=== PATIENT | male | born 1990 | race African-American/Black ===

== ENCOUNTER 2024-05-25 19:53 | Emergency (ER) | payer OTHER ==
[~2024-05-25] VITALS: Ht 185.4 cm; Wt 81.6 kg
[~2024-05-25 19:53] MED LIST: BUPRENORPHIN-N1 EACH SL; DEXTROAMP-AMPHE30 MG PO
[2024-05-25 21:29] LABS: EOSINOPHILS 0.6 % (0-6); HEMATOCRIT 39.4 % (35.0-50.0); HEMOGLOBIN 13.8 g/dL (12.0-18.0); LYMPHOCYTES 28.6 % (24-44); MCH 37.3 (27-36); MCHC 34.9 g/dl (30-36); MCV 106.8 fl (81-99); MONOCYTES 9.3 % (0-12); NEUTROPHILS 60.5 % (39-80); PLATELET COUNT 177 K/uL (140-440); RBC 3.69 M/ul (4.3-5.7); RDW 15.9 (10.5-15.0)
[2024-05-25 21:46] LABS: ALBUMIN 4.5 g/dL (3.4-5.0); ALBUMIN/GLOBULIN RATIO 1.18 (1.1-2.4); ANION GAP 16.6 (7-21); BILIRUBIN, TOTAL 0.7 mg/dL (0.2-1.0); BUN/CREATININE RATIO 13.04 (6.0-28.6); CALCIUM 8.3 mg/dL (8.5-10.1); CREATININE, SERUM 0.92 mg/dL (0.70-1.30); POTASSIUM 3.6 mmol/L (3.5-5.1); PROTEIN, TOTAL 8.3 g/dL (6.4-8.2)
[2024-05-25] MEDS ORDERED: TRAMADOL HCL50 MG PO (22:34)
[2024-05-25 22:50] LABS: ABO O; RH POSITIVE
[2024-05-25 22:51] LABS: ANTIBODY SCREEN NEGATIVE
[2024-05-25 23:14] VITALS: BP 151/102
== END 2024-05-25 23:16 | disposition home or self-care (01) ==
LOC: ED 19:53
PROVIDERS: Family Medicine
DX: S16.1XXA Strain of muscle, fascia and tendon at neck level, initial encounter (principal); S39.012A Strain of muscle, fascia and tendon of lower back, initial encounter; W14.XXXA Fall from tree, initial encounter; Y93.H2 Activity, gardening and landscaping; Z79.899 Other long term (current) drug therapy
CPT/HCPCS: 36415; 70450; 71260; 72125; 72128; 72131; 74177; 80053; 83690; 85025; 86850; 86900; 86901; 99284-25; G0480; Q9967

== ENCOUNTER 2024-06-02 11:59 | Emergency (ER) | payer OTHER ==
[~2024-06-02] VITALS: Ht 185.4 cm; Wt 87.2 kg
[~2024-06-02 11:59] MED LIST changes: +TRAMADOL HCL50 MG PO
--- OUTSIDE RECORDS SUMMARY | 2024-06-02 12:03 | XMS ---
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 E.D. VISIT COUNT (12 MO.) 2 [facility] TOTAL 2 NOTE: Visits indicate total known visits. ED/UCC VISIT TRACKING (12 MO.) 06/02/2024 11:59 [facility] [place] TYPE: Emergency COMPLAINT: - NECK INJURY 05/25/2024 19:53 [facility] [place] TYPE: Emergency COMPLAINT: - HEAD INJURY DIAGNOSES: - Activity, gardening and landscaping - Fall from tree, initial encounter - Other long term care social worker (current) drug therapy - Strain of muscle, fascia and tendon at neck level, initial encounter - Strain of muscle, fascia and tendon of lower back, initial encounter - Unspecified injury of head, initial encounter INPATIENT VISIT TRACKING (12 MO.) No inpatient visits to display in this time frame [email or web address]
[2024-06-02] MEDS ORDERED: CYCLOBENZAPRINE HCL 10 MG TAB PO ONE (13:00)
[2024-06-02] MEDS ORDERED: GABAPENTIN 300 MG CAP PO ONE (13:00)
[2024-06-02] MEDS ORDERED: CYCLOBENZAPRINE10 MG PO (13:11)
[2024-06-02] MEDS ORDERED: NEURONTIN300 MG PO (13:11)
[2024-06-02 13:31] VITALS: BP 157/88
== END 2024-06-02 13:32 | disposition home or self-care (01) ==
LOC: ED 11:59
DX: S06.0X0A Concussion without loss of consciousness, initial encounter (principal); Z79.899 Other long term (current) drug therapy; W14.XXXA Fall from tree, initial encounter
CPT/HCPCS: 99282; A9270

== ENCOUNTER 2024-06-14 16:39 | Emergency (ER) | payer OTHER ==
[~2024-06-14] VITALS: Ht 185.4 cm; Wt 82.1 kg
[~2024-06-14 16:39] MED LIST changes: +CYCLOBENZAPRINE10 MG PO; +NEURONTIN300 MG PO
--- OUTSIDE RECORDS SUMMARY | 2024-06-14 16:43 | XMS ---
PreManage Notification: ROSA M ROSS Security Ccnp Events No recent Security Events currently on file CRITERIA MET - [facility] - 2 Visits in 30 Days CARE PROVIDERS -, [facility] Dentist: Watch Train Assembler [facility] PHONE: [phone] -Lion- Dentist: Watch Train Assembler [facility] PHONE: [phone] [facility]/Center: [facility] ([facility]) PHONE: [phone] Rai has no Care Guidelines for this patient. E.D. VISIT COUNT (12 MO.) 3 [facility] [place] TOTAL 3 NOTE: Visits indicate total known visits. ED/UCC VISIT TRACKING (12 MO.) 06/14/2024 16:39 [facility] [place] TYPE: Emergency COMPLAINT: - HEAD INJURY 06/02/2024 11:59 [facility] [place] TYPE: Emergency COMPLAINT: - NECK INJURY DIAGNOSES: - Cervicalgia - Concussion without loss of consciousness, initial encounter - Fall from tree, initial encounter - Other custodial (current) drug therapy 05/25/2024 19:[address] [facility] [place] TYPE: Emergency COMPLAINT: - HEAD INJURY DIAGNOSES: - Activity, gardening and landscaping - Fall from tree, initial encounter - Other long chain dyeing machine operator (current) drug therapy - Strain of muscle, fascia and tendon at neck level, initial encounter - Strain of muscle, fascia and tendon of lower back, initial encounter - Unspecified injury of head, initial encounter INPATIENT VISIT TRACKING (12 MO.) No inpatient visits to display in this time frame [email or web address]
[2024-06-14 17:49] VITALS: BP 157/87
== END 2024-06-14 17:49 | disposition home or self-care (01) ==
LOC: ED 16:39
DX: R51.9 Headache, unspecified (principal); F07.81 Postconcussional syndrome; M54.2 Cervicalgia; Z91.038 Other insect allergy status; Z88.0 Allergy status to penicillin
CPT/HCPCS: 99283

== ENCOUNTER 2024-07-26 14:53 | Emergency (ER) | payer OTHER ==
[~2024-07-26] VITALS: Ht 185.4 cm; Wt 83.1 kg
[2024-07-26 15:14] LABS: BASOPHILS 0.8 % (0.2-1.2); EOSINOPHILS 0.8 % (0.8-7.0); HEMATOCRIT 45.2 % (40.1-51.0); HEMOGLOBIN 15.3 g/dL (13.7-17.5); LYMPHOCYTES 32.9 % (21.8-53.1); MCH 36.4 PG (25.7-32.2); MCHC 33.8 g/dL (32.3-36.5); MCV 107.6 fL (79.0-92.2); MONOCYTES 9.5 % (5.3-12.2); NEUTROPHILS 55.9 % (34.0-67.9); PLATELET COUNT 152 K/uL (163-337)
[2024-07-26] MEDS ORDERED: SODIUM CHLORIDE 0.9% 1,000 ML IV PRN ×2 (15:15→17:00)
[2024-07-26 15:24] LABS: ALBUMIN 4.9 g/dL (3.4-5.0); ALBUMIN/GLOBULIN RATIO 1.14 (1.1-2.4); ANION GAP 25.4 (7-21); BILIRUBIN, TOTAL 1.1 mg/dL (0.2-1.0); BUN/CREATININE RATIO 7.29 (6.0-28.6); CALCIUM 10.2 mg/dL (8.5-10.1); CREATININE, SERUM 1.37 mg/dL (0.70-1.30); POTASSIUM 3.4 mmol/L (3.5-5.1); PROTEIN, TOTAL 9.2 g/dL (6.4-8.2)
[2024-07-26 16:21] LABS: BILIRUBIN, URINE NEGATIVE (negative); BLOOD/HGB, URINE SMALL (Negative); KETONE, URINE TRACE (Negative); LEUK ESTERASE, URINE NEGATIVE (negative); NITRITE, URINE NEGATIVE (negative)
[2024-07-26 16:27] LABS: BACTERIA, URINE RARE /hpf (negative); CASTS, URINE NONE SEEN \\lpf; COLLECTION TYPE, URINE CLEAN CATCH; CRYSTALS, URINE NONE SEEN (0-1+); EPITHELIAL CELLS, URINE SQUAMOUS 1+ /lpf (0-1+); REFLEX CULTURE, URINE No (No)
[2024-07-26 16:35] LABS: AMPHETAMINES, URINE POSITIVE (NEGATIVE); BENZODIAZEPINE, URINE NEGATIVE (NEGATIVE); BUPRENORPHINE, URINE POSITIVE (NEGATIVE); CANNABINOID, URINE POSITIVE (NEGATIVE); COCAINE, URINE NEGATIVE (NEGATIVE); ECSTASY, URINE NEGATIVE (NEGATIVE); FENTANYL, URINE NEGATIVE (NEGATIVE); METHADONE, URINE NEGATIVE (NEGATIVE); OPIATES, URINE NEGATIVE (NEGATIVE); OXYCODONE, URINE NEGATIVE (NEGATIVE); PHENCYCLIDINE, URINE NEGATIVE (NEGATIVE)
[2024-07-26 16:39] LABS: BARBITURATES, URINE NEGATIVE (NEGATIVE)
[2024-07-26] MEDS ORDERED: LORazepam 1 MG TAB PO ONE (17:30)
[2024-07-26 20:24] LABS: ALBUMIN 3.8 g/dL (3.4-5.0); ANION GAP 7.9 (7-21); BILIRUBIN, TOTAL 1.3 mg/dL (0.2-1.0); BUN/CREATININE RATIO 8.88 (6.0-28.6); CALCIUM 8.7 mg/dL (8.5-10.1); CREATININE, SERUM 0.9 mg/dL (0.70-1.30); POTASSIUM 3.9 mmol/L (3.5-5.1); PROTEIN, TOTAL 7.6 g/dL (6.4-8.2)
[2024-07-26 21:38] VITALS: BP 149/63
== END 2024-07-26 21:40 | disposition home or self-care (01) ==
LOC: ED 14:53
PROVIDERS: Emergency Medicine
DX: R56.9 Unspecified convulsions (principal); Z79.899 Other long term (current) drug therapy; Z91.030 Bee allergy status; Z88.0 Allergy status to penicillin
CPT/HCPCS: 36415; 70551; 80053; 80307; 81001; 83605; 85025; 96360; 96361; 99285-25; A9270-GY; G0480; J7030

== ENCOUNTER 2024-08-07 01:05 | Emergency (ER) | payer OTHER ==
--- OUTSIDE RECORDS SUMMARY | 2024-08-07 01:10 | XMS ---
PreManage Notification: ROSA M ROSS Security Vp Training Events No recent Security Events currently on file CRITERIA MET - [facility] - 2 Visits in 30 Days CARE PROVIDERS -, [facility] Dentist: Attorney General [facility] PHONE: [phone] -Lion- Dentist: Attorney General [facility] PHONE: [phone] [facility]/Center: [facility] ([facility]) PHONE: [phone] Rai has no Care Guidelines for this patient. E.D. VISIT COUNT (12 MO.) [address] [facility] TOTAL 5 NOTE: Visits indicate total known visits. ED/UCC VISIT TRACKING (12 MO.) 08/07/2024 01:06 [facility] [place] TYPE: Emergency COMPLAINT: - MEDICATION REFILL 07/26/2024 14:53 [facility] [place] TYPE: Emergency COMPLAINT: - SEIZURE DIAGNOSES: - Allergy status to penicillin - Bee allergy status - Other fci (current) drug therapy - Unspecified convulsions 06/14/2024 16:39 [facility] [place] [facility]: [facility] COMPLAINT: - HEAD INJURY DIAGNOSES: - Allergy status to penicillin - Cervicalgia - Headache, unspecified - Other insect allergy status - Postconcussional syndrome 06/02/2024 11:59 [facility] [place] TYPE: Emergency COMPLAINT: - NECK INJURY DIAGNOSES: - Cervicalgia - Concussion without loss of consciousness, initial encounter - Fall from tree, initial encounter - Other termite treater helper (current) drug therapy 05/25/2024 19:53 [facility] [place] TYPE: Emergency COMPLAINT: - HEAD INJURY DIAGNOSES: - Activity, gardening and landscaping - Fall from tree, initial encounter - Other termite treater helper (current) drug therapy - Strain of muscle, fascia and tendon at neck level, initial encounter - Strain of muscle, fascia and tendon of lower back, initial encounter - Unspecified injury of head, initial encounter INPATIENT VISIT TRACKING (12 MO.) No inpatient visits to display in this time frame [id number]
[2024-08-07] MEDS ORDERED: BUPRENORPHIN-N1 EACH SL (01:42)
[2024-08-07] MEDS ORDERED: NALOXONE 4 MG NASAL SPRAY #2 HOME.PACK NAS ONE (01:45)
[2024-08-07] MEDS ORDERED: Buprenorphine/Naloxone 8/2mg 1 EACH HOME.PACK SL ONE (01:45)
[2024-08-07 01:55] VITALS: BP 135/75
== END 2024-08-07 01:56 | disposition home or self-care (01) ==
LOC: ED 01:05
DX: Z76.0 Encounter for issue of repeat prescription (principal); Z79.899 Other long term (current) drug therapy; Z91.030 Bee allergy status; Z88.0 Allergy status to penicillin
CPT/HCPCS: 99281; A9270; J3490